=== PATIENT | female | born 1970 | race Caucasian/White ===

== ENCOUNTER 2016-03-10 14:41 | Observation (INO) | payer OTHER ==
[~2016-03-10] VITALS: Ht 160 cm; Wt 108.1 kg
[~2016-03-10 14:41] MED LIST: ACID REDUCER 1150 MG PO; AFRIN,GENASAL D15 ML BOTH NARES; AMBIEN10 MG PO; ATARAX,VISTARIL50 MG PO; CATAPRES0.1 MG PO; CATAPRES0.2 MG PO; COLACE100 MG PO; CONCERTA36 MG PO; CYMBALTA30 MG PO; DARVOCET A5001 EACH PO; DEXAMETHASONE4 MG PO; ELAVIL25 MG; ESZOPICLONE3 MG PO; FENOFIBRATE145 M1 PO; FETZIMA120 MG PO; FETZIMA40 MG PO; FIORICET,ESG1 TABLET PO; FLEXERIL10 MG PO; LUNESTA3 MG PO; MEGACE40 MG PO; MOTRIN100 MG PO; MOTRIN600 MG PO; PROZAC40 MG PO; SUPHEDRINE PE10 MG PO; ZANAFLEX4 MG PO
[2016-03-10 16:42] LABS: HEMATOCRIT 35.7 % (36.0-46.0); MCHC 33.1 G/DL (30.0-36.0); MCV 72.6 FL (83-99); MEAN PLAT.VOLUME 8.4 uM^3 (9.5-12.4); PLATELET COUNT 456 K/uL (156-360); RBC DIS.WIDTH-CV 17.8 % (11.8-14.6); RBC DIS.WIDTH-SD 46.3 % (39-53); RED BLOOD COUNT 4.92 M/uL (3.80-5.20)
[2016-03-10 16:57] LABS: CHLORIDE 107 mEq/L (99-109); POTASSIUM 4.1 mEq/L (3.7-5.4); SODIUM 141 mEq/L (136-147)
[2016-03-10 16:59] LABS: GLUCOSE 98 mg/dL (70-99)
[2016-03-10 17:00] LABS: ANION GAP 10 MEQ/L (2-14)
[2016-03-10 17:03] LABS: GFR ESTIMATE (CALCULATED) > 59 mL/min/; UREA NITROGEN (BUN) 16 mg/dL (9-23)
[2016-03-10 17:24] LABS: TROP-I INTERPRETATION NEGATIVE; TROPONIN-I < 0.01 ng/mL (0.0-0.30)
[2016-03-10] MEDS ORDERED: FETZIMA40 MG PO (18:06)
[2016-03-10] MEDS ORDERED: VYVANSE60 MG PO (18:07)
[2016-03-10] MEDS ORDERED: IBUPROFEN800 MG PO (18:08)
[2016-03-10] MEDS ORDERED: OMEPRAZOLE40 M1 PO (18:08)
[2016-03-10] MEDS ORDERED: FLEXERIL5 MG PO (18:09)
[2016-03-10 21:59] LABS: TOTAL BILIRUBIN 0.2 mg/dL (0.0-1.0)
[2016-03-10 22:00] VITALS: BP 160/82
[2016-03-10 22:00] LABS: ALKALINE PHOSPHATASE 54 IU/L (3-129)
[2016-03-10 22:02] LABS: DIRECT BILIRUBIN 0.1 mg/dL (0.0-0.3)
[2016-03-10 22:03] LABS: LIPASE 17 U/L (1.0-51.0)
[2016-03-10 22:30] VITALS: BP 183/93
[2016-03-11] LABS: TROP-I INTERPRETATION NEGATIVE; TROPONIN-I < 0.01 ng/mL (0.0-0.30)
[2016-03-11 04:00] VITALS: BP 151/81
[2016-03-11 07:04] LABS: HEMATOCRIT 33.4 % (36.0-46.0); MCH 23.4 PG (29.0-34.0); MCHC 31.4 G/DL (30.0-36.0); MCV 74.6 FL (83-99); MEAN PLAT.VOLUME 8.6 uM^3 (9.5-12.4); PLATELET COUNT 351 K/uL (156-360); RBC DIS.WIDTH-CV 17.5 % (11.8-14.6); RED BLOOD COUNT 4.48 M/uL (3.80-5.20)
[2016-03-11 07:07] LABS: WHITE BLOOD COUNT 7.1 K/uL (4.1-10.2)
[2016-03-11 07:21] LABS: ANION GAP 11 MEQ/L (2-14); CHLORIDE 101 MEQ/L (99-109); GFR ESTIMATE (CALCULATED) > 59 mL/min/; GLUCOSE 101 mg/dL (70-99); SAMPLE HEMOLYSIS CHECK 0; SAMPLE ICTERIC CHECK 0; SAMPLE LIPEMIA CHECK 0; SODIUM 138 MEQ/L (136-147); UREA NITROGEN (BUN) 12 mg/dL (9-23)
[2016-03-11 07:24] LABS: TROP-I INTERPRETATION NEGATIVE; TROPONIN-I 0.01 ng/mL (0.0-0.30)
[2016-03-11 09:30] VITALS: BP 143/81
[2016-03-11] MEDS ORDERED: LOPRESSOR25 MG PO (10:05)
[2016-03-11] MEDS ORDERED: HYDROCHLOROTHIA25 MG PO (10:06)
== END 2016-03-11 12:50 | disposition home or self-care (01) ==
LOC: EME 14:41 → 5WEST 20:45 → EDOF 20:45 → 5WEST 22:28
PROVIDERS: Emergency Medicine; Hospitalist
DX: R07.89 Other chest pain (principal); I10 Essential (primary) hypertension; I16.0 Hypertensive urgency; R42 Dizziness and giddiness; K21.9 Gastro-esophageal reflux disease without esophagitis; E78.5 Hyperlipidemia, unspecified; Z79.82 Long term (current) use of aspirin; Z79.899 Other long term (current) drug therapy; D53.9 Nutritional anemia, unspecified; G89.4 Chronic pain syndrome; E66.9 Obesity, unspecified; Z68.41 Body mass index [BMI] 40.0-44.9, adult
CPT/HCPCS: 70450; 71020; 71275; 80048; 80076; 83690; 84484; 85027; 93005; 99281; 99285; G0378; J1200; J1885; J2765; J7030

== ENCOUNTER 2016-07-10 20:32 | Emergency (ER) | payer OTHER ==
[~2016-07-10] VITALS: Ht 162.6 cm; Wt 104.5 kg
[~2016-07-10 20:32] MED LIST changes: +FLEXERIL5 MG PO; +HYDROCHLOROTHIA25 MG PO; +IBUPROFEN800 MG PO; +LOPRESSOR25 MG PO; +OMEPRAZOLE40 M1 PO; +VYVANSE60 MG PO
[2016-07-10 21:15] LABS: HEMATOCRIT 42.6 % (36.0-46.0); MCH 26.8 PG (29.0-34.0); MCHC 32.9 G/DL (30.0-36.0); MCV 81.6 FL (83-99); MEAN PLAT.VOLUME 8.6 uM^3 (9.5-12.4); PLATELET COUNT 451 K/uL (156-360); RBC DIS.WIDTH-CV 14.3 % (11.8-14.6); RED BLOOD COUNT 5.22 M/uL (3.80-5.20)
[2016-07-10 21:27] LABS: CHLORIDE 102 mEq/L (99-109); POTASSIUM 3.5 mEq/L (3.7-5.4); SODIUM 138 mEq/L (136-147)
[2016-07-10 21:29] LABS: GLUCOSE 109 mg/dL (70-99)
[2016-07-10 21:31] LABS: ANION GAP 12 MEQ/L (2-14); TOTAL BILIRUBIN 0.4 mg/dL (0.0-1.0)
[2016-07-10 21:33] LABS: ALKALINE PHOSPHATASE 46 IU/L (3-129); GFR ESTIMATE (CALCULATED) > 59 mL/min/
[2016-07-10 21:34] LABS: UREA NITROGEN (BUN) 16 mg/dL (9-23)
[2016-07-10 21:42] LABS: QUANTITATIVE HCG < 4.0 MIU/ML
[2016-07-10 22:50] LABS: TROP-I INTERPRETATION NEGATIVE; TROPONIN-I < 0.01 ng/mL (0.0-0.30)
[2016-07-11 00:37] LABS: CREATINE KINASE 30 IU/L (1-294); LIPASE 32 U/L (1.0-51.0)
[2016-07-11 02:10] LABS: ADD MIUA? NO; BILIRUBIN NEGATIVE; BLOOD NEGATIVE; COLOR YELLOW ((YELLOW)); GLUCOSE (STRIP) NEGATIVE; KETONES NEGATIVE; LEUKOCYTES NEGATIVE; NITRITE NEGATIVE; PROTEIN (STRIP) NEGATIVE; SPECIFIC GRAVITY 1.028 (1.000-1.030); UCUL ADDED? NO; UROBILINOGEN 0.2 MG/DL (0.2-1.0)
[2016-07-11] MEDS ORDERED: BENTYL20 MG PO (02:43)
[2016-07-11 03:38] VITALS: BP 107/61
== END 2016-07-11 03:39 | disposition home or self-care (01) ==
LOC: EME 20:32
PROVIDERS: Physician Assistant
DX: R55 Syncope and collapse (principal); R10.13 Epigastric pain; I10 Essential (primary) hypertension; K21.9 Gastro-esophageal reflux disease without esophagitis
CPT/HCPCS: 70450; 71020; 80053; 81003; 82550 91; 83690; 84484; 84702; 85027; 93005; 99281; 99285; J2765; J7030; S0028